=== PATIENT | female | born 1965 | race Two or more races ===

== ENCOUNTER 2024-08-12 18:15 | Emergency (ER) | payer OTHER ==
[~2024-08-12] VITALS: Ht 162.6 cm; Wt 60.3 kg
[2024-08-12] MEDS ORDERED: LEVO-T100 MCG (18:33)
[2024-08-12] MEDS ORDERED: CLONAZEPAM1 M1 PO (18:33)
[2024-08-12] MEDS ORDERED: PROZAC40 MG PO (18:33)
[2024-08-12] MEDS ORDERED: RINGERS SOLUTION,LACTATED 1,000 ML IV STA (19:34)
[2024-08-12 20:16] LABS: HEMATOCRIT 41.1 % (36.0-45.00); HEMOGLOBIN 13.8 g/dL (12.0-15.00); MEAN CELL VOLUME 88.3 fL (80.00-100.00); MEAN CORPUSCULAR HEMOGLOBIN 29.7 pg (27.00-32.0); MEAN CORPUSCULAR HGB CONC 33.7 g/dl (32.0-36.0); PLATELET COUNT 270 K/uL (150-450); RED BLOOD COUNT 4.65 M/uL (4.00-6.00); RED CELL DISTRIBUTION WIDTH 13.6 % (11.5-14.5)
[2024-08-12 20:30] LABS: PH,URINE 5.5 (5.0-8.0); URINE APPEARANCE Clear; URINE BILIRRUBIN Negative (NEGATIVE); URINE BLOOD Negative; URINE COLOR Yellow; URINE GLUCOSE Negative (NEGATIVE); URINE KETONE 15 (NEGATIVE); URINE LEUKOCYTE Negative; URINE NITRATE Negative; URINE PROTEIN Negative (NEGATIVE); URINE UROBILINOGEN 0.2 E.U./dl
[2024-08-12 20:30] LABS: INR 1.08; PARTIAL THROMBOPLASTIN TIME 29.8 SECONDS (22.0-34.0); PROTHROMBIN TIME 11.7 SECONDS (9.0-11.5)
[2024-08-12 20:33] LABS: URINE BACTERIA 85.6 uL (0.0-1933); URINE EPITHELIAL CELLS 4.9 uL (0.0-38.8); URINE RBC 6.1 uL (0.0-20.8); URINE WBC 9.8 uL (0.0-23.2)
[2024-08-12 20:35] LABS: ALBUMIN 4.2 gm/dL (3.4-5.0); BILIRUBIN TOTAL 0.4 mg/dL (0.3-1.2); CALCIUM 9.2 mg/dL (8.5-10.1); CREATININE SERUM 0.72 mg/dL (0.55-1.02); GFR 82.91; GLOBULINA 3.8 G/DL (2.4-3.5)
== END 2024-08-13 00:34 | disposition home or self-care (01) ==
LOC: ER 18:17
DX: R10.32 Left lower quadrant pain (principal); R10.9 Unspecified abdominal pain
CPT/HCPCS: 36415; 74177; Q9965

== ENCOUNTER 2025-05-11 10:45 | Inpatient (IN) | payer OTHER ==
[~2025-05-11] VITALS: Ht 162.6 cm; Wt 61.2 kg
[~2025-05-11 10:45] MED LIST: CLONAZEPAM1 M1 PO; LEVO-T100 MCG; PROZAC40 MG PO
[2025-05-11 12:19] VITALS: BP 150/84
[2025-05-11 13:44] LABS: RH POSITIVE
[2025-05-14] MEDS ORDERED: LIDOCAINE HCL 1%/EPINEPHRINE 20ML VIAL IJ ONE (15:00)
[2025-05-14] MEDS ORDERED: METRONIDAZOLE/SODIUM CHLORIDE 500 MG/100 ML PIGGYBACK IV ONE (15:00)
[2025-05-14] MEDS ORDERED: BUPIVACAINE HCL 30 ML VIAL IJ ONE (15:00)
[2025-05-14] MEDS ORDERED: CEFTRIAXONE SODIUM 2,000 MG VIAL IV ONE (15:00)
[2025-05-14] MEDS ORDERED: ONDANSETRON HCL 2 MG/ML VIAL IV PRN (17:15)
[2025-05-14] MEDS ORDERED: RINGERS SOLUTION,LACTATED 1,000 ML IV SCH (17:15)
[2025-05-14] MEDS ORDERED: MORPHINE SULFATE 4 MG/ML CARTRIDGE IV PRN (17:15)
[2025-05-14] MEDS ORDERED: OxyCODONE HCL 5 MG TABLET (ROXICODONE) PO PRN (17:30)
[2025-05-14] MEDS ORDERED: ACETAMINOPHEN 500 MG GEL..CAP PO SCH (18:00)
[2025-05-14] MEDS ORDERED: MORPHINE SULFATE 2 MG/ML CARTRIDGE IV ONE ×2 (18:50→19:20)
[2025-05-14 20:30] VITALS: BP 127/75; O2SAT 95
[2025-05-14 20:34] LABS: BASO % 0.1 % (0.1-1.2); EOS # 0.00 (0.04-0.54); EOS % 0.0 % (0.7-7.0); LYMPH # 0.78 (1.18-3.74); LYMPH % 5.8 % (19.3-53.1); MEAN PLATELET VOLUME 10.80 fl (9.4-12.4); MONO # 0.66 (0.24-0.82); MONO % 4.9 % (4.7-12.5); NEUT # 11.83 (1.56-6.13); NEUT % 88.8 % (34.0-71.1); RED CELL DISTRIBUTION WIDTH 12.7 % (11.6-14.4)
[2025-05-14 20:58] LABS: BUN CREA RATIO 13.0 (7.0-25.0); CREATININE SERUM 0.53 mg/dL (0.55-1.02); GFR 117.67; GLUCOSE FASTING 168.0 mg/dL (65-100); OSMOLALITY SERUM 283.0 MOSM/KG (275-295)
[2025-05-14] MEDS ORDERED: FAMOTIDINE/PF 20 MG/2 ML VIAL IV PUSH SCH (21:00)
[2025-05-14] MEDS ORDERED: CLONAZEPAM 1 MG TABLET PO SCH (21:00)
[2025-05-14] MEDS ORDERED: SIMETHICONE 125 MG CAPSULE PO SCH (21:00)
[2025-05-15] MEDS ORDERED: GABAPENTIN 300 MG CAPSULE PO SCH (01:00)
[2025-05-15 01:51] VITALS: BP 147/91; O2SAT 93
[2025-05-15] MEDS ORDERED: LEVOTHYROXINE SODIUM 100 MCG TABLET PO SCH (06:00)
[2025-05-15 08:00] VITALS: BP 133/78; O2SAT 96
[2025-05-15 08:36] LABS: BASO % 0.2 % (0.1-1.2); EOS # 0.00 (0.04-0.54); EOS % 0.0 % (0.7-7.0); LYMPH # 0.46 (1.18-3.74); LYMPH % 3.6 % (19.3-53.1); MEAN PLATELET VOLUME 11.20 fl (9.4-12.4); MONO # 0.49 (0.24-0.82); MONO % 3.8 % (4.7-12.5); NEUT # 11.81 (1.56-6.13); NEUT % 92.0 % (34.0-71.1); RED CELL DISTRIBUTION WIDTH 12.7 % (11.6-14.4)
[2025-05-15] MEDS ORDERED: MAGNESIUM CHLORIDE 70 MG TABLET.DR PO SCH (09:00)
[2025-05-15] MEDS ORDERED: LACTOBACILLUS ACIDOPHILUS 1 CAP CAP PO SCH (09:00)
[2025-05-15] MEDS ORDERED: POLYETHYLENE GLYCOL 3350 17 GM BLIST.PACK PO SCH (09:00)
[2025-05-15] MEDS ORDERED: FLUOXETINE HCL 10 MG CAPSULE PO SCH (09:00)
[2025-05-15 09:13] LABS: BUN CREA RATIO 14.0 (7.0-25.0); CREATININE SERUM 0.43 mg/dL (0.55-1.02); GFR 149.78; GLUCOSE FASTING 132.0 mg/dL (65-100); OSMOLALITY SERUM 275.0 MOSM/KG (275-295)
[2025-05-15] MEDS ORDERED: MAGNESIUM SULFATE IN WATER 2 GM/50 ML PIGGYBAG IV NR (14:45)
[2025-05-15] MEDS ORDERED: MORPHINE SULFATE 4 MG/ML VIAL IV STA (14:47)
[2025-05-15 16:00] VITALS: BP 98/59; O2SAT 94
[2025-05-15] MEDS ORDERED: ENOXAPARIN SODIUM 40 MG/0.4 ML SYRINGE SUBCUTANEO SCH (17:00)
[2025-05-16 00:36] VITALS: BP 103/60; O2SAT 100
[2025-05-16 08:05] LABS: BASO % 0.2 % (0.1-1.2); EOS # 0.03 (0.04-0.54); EOS % 0.3 % (0.7-7.0); LYMPH # 1.76 (1.18-3.74); LYMPH % 20.5 % (19.3-53.1); MEAN PLATELET VOLUME 11.50 fl (9.4-12.4); MONO # 0.93 (0.24-0.82); MONO % 10.8 % (4.7-12.5); NEUT # 5.82 (1.56-6.13); NEUT % 68.0 % (34.0-71.1); RED CELL DISTRIBUTION WIDTH 12.9 % (11.6-14.4)
[2025-05-16 08:27] LABS: BUN CREA RATIO 13.0 (7.0-25.0); CREATININE SERUM 0.52 mg/dL (0.55-1.02); GFR 120.28; GLUCOSE FASTING 86.0 mg/dL (65-100); OSMOLALITY SERUM 282.0 MOSM/KG (275-295)
[2025-05-16 10:00] VITALS: BP 131/81; O2SAT 97
[2025-05-16 16:00] VITALS: BP 135/84; O2SAT 95
[2025-05-16] MEDS ORDERED: GUAIFEN/DEXTROMETHORPHAN/PE 10 ML BLIST.PACK PO SCH (17:00)
[2025-05-16] MEDS ORDERED: BENZONATATE 100 MG CAPSULE PO SCH (17:00)
[2025-05-16] MEDS ORDERED: PHENOL 177 ML BOTTLE MM SCH (17:00)
[2025-05-17 01:07] VITALS: BP 97/60; O2SAT 93
[2025-05-17 08:00] VITALS: BP 119/82; O2SAT 98
[2025-05-17] MEDS ORDERED: BENZONATATE 200 MG CAPSULE PO SCH (09:00)
[2025-05-17] MEDS ORDERED: NAPH,MB-DB/K PH,MBDB 1 PKT PACKET PO NR (09:00)
== END 2025-05-17 14:19 | disposition home or self-care (01) | DRG 331 ==
LOC: SURG 05-14 08:00 → O/R 05-14 11:44 → SURH 05-14 18:23
PROVIDERS: ADMIT Colon & Rectal Surgery; ATTEND Colon & Rectal Surgery
PROC: 0DBP4ZZ Excision of Rectum, Percutaneous Endoscopic Approach (ICD-10-PCS; 2025-05-14)
PROC: 0DJD8ZZ Inspection of Lower Intestinal Tract, Via Natural or Artificial Opening Endoscopic (ICD-10-PCS; 2025-05-14)
PROC: 0DTN4ZZ Resection of Sigmoid Colon, Percutaneous Endoscopic Approach (ICD-10-PCS; principal; 2025-05-14 08:00)
DX: K57.20 Diverticulitis of large intestine with perforation and abscess without bleeding (principal)